=== PATIENT | female | born 1985 | race Caucasian/White ===

== ENCOUNTER 2023-10-27 11:50 | Emergency (ER) | payer OTHER, SELFPAY ==
[2023-10-27 11:57] VITALS: BP 118/76; PULSE 71; TEMP 36.9; O2SAT 100; BMI 20.4
--- NOTE | 2023-10-27 15:29 | ED.GENADUL1 ---
HPI HPI - General Adult General Stated complaint: EYE PAIN Source: patient Mode of arrival: walk-in Related Data Allergies Allergy/AdvReac Type Severity Reaction Status Date / Time No Known Drug Allergies Allergy Verified 10/27/23 12:01 Opioid HPI Opioid Management Most Recent Opioid Data: No Data to Display Exam Constitutional Vital Signs, click to edit/add: Last Vital Signs Temp 98.5 F 10/27/23 11:57 Pulse 71 10/27/23 11:57 Resp 16 10/27/23 11:57 BP 118/76 10/27/23 11:57 Pulse Ox 100 10/27/23 11:57 Course Vital Signs Vital signs: Vital Signs Temperature 98.5 F 10/27/23 11:57 Pulse Rate 71 10/27/23 11:57 Respiratory Rate 16 10/27/23 11:57 Blood Pressure 118/76 10/27/23 11:57 Pulse Oximetry 100 10/27/23 11:57 Temperature 98.5 F 10/27/23 11:57 Pulse Rate 71 10/27/23 11:57 Respiratory Rate 16 10/27/23 11:57 Blood Pressure 118/76 10/27/23 11:57 Pulse Oximetry 100 10/27/23 11:57 Medical Decision Making MDM Narrative Medical decision making narrative: Left from waiting room after triage. Not seen by provider. Discharge Plan Discharge Patient Disposition: Left Without Being Seen Discharge Date/Time: 10/27/23 12:25
== END 2023-10-27 12:25 | disposition left against medical advice (07) ==
LOC: ER 12:06
PROVIDERS: Emergency Provider Student in an Organized Health Care Education/Training Program
DX: Z53.21 Procedure and treatment not carried out due to patient leaving prior to being seen by health care provider (principal)

== ENCOUNTER 2024-11-17 08:38 | Outpatient (OUT) | payer OTHER, SELFPAY ==
--- OUTSIDE RECORDS SUMMARY | 2024-01-27 05:00 | XMS_ITS ---
Author Organization [facility] in [place] Address [address] [place] [address] Care Team Providers Care Pegger Name Role Phone Radha Hernández Primary Care Provider Allergies No Known Allergies Reason For Referral Reason hearing loss Diagnosis 1 Hearing loss (H91.90 ) Referral Organization [facility] Referring Provider First Name Radha Referring Provider Last Name Betty Referring Provider Speciality [facility] Referred Provider Barbara Ann Referred Provider Specialty Otolaryngolo gy Referral Priority Routine REASON FOR VISIT establish- hasn't had a routine PCP, Right ear issues- was told in the past has punctured ear drum-needs referral Medications Medication SIG (Take, Route, Fr equency, Duration) Notes Start Date End Date Status Omeprazole 20 MG 1 capsule 1/2 to 1 h our before morning meal Orally Once a day for 30 days 01/27/2024 Active Cetirizine HCl 10 MG 1 tablet Orally Onc e a day for 30 days 01/27/2024 Active Social History Tobacco Use: Social History Observation Description Date Details (start date - stop date) Current Smoker 04/15/2001 - NA Tobacco Control (Standard) Question Answer Notes Tobacco use: Current smoker When did you start smoking? 04/15/2001 How often do you smoke cigarettes? Every day How many cigarettes a day do you smoke? 6-10 Additional Findings: Tobacco user Light cigarett e smoker (1-9 cigs/day) AUDIT-C (Standard) Question Answer Notes Did you have a drink contain ing alcohol in the past year? Yes How often did you have six o r more drinks on one occasion in the past year? 2 to 4 times a month (2 points) How many drinks did you have on a typical day when you were drinking in the past year? 5 or 6 drinks (2 points) How often did you have a dri nk containing alcohol in the past year? 2 to 4 times a month (2 points) Points 6 Interpretation Positive Problems Problem Type SNOMED Code ICD Code Onset Dates Problem Status W/U Status Risk Notes Problem Gastroesophageal reflux disease (256961511) GERD (gastroesopha geal reflux disease) (K21.9) Active confirmed Problem Seasonal allergy (184080593) Seasonal allergies (J30.2) Active confirmed Problem Hearing loss (38872292) Hearing loss (H91.90) Active confirmed Problem Smoker (98525415) Smoker (F17.200) Active confirmed Vital Signs Weight 150.2 lbs 01/27/2024 Height 67 in 01/27/2024 Blood pressure systolic 114 mm Hg 01/27/20 24 Blood pressure diastolic 72 mm Hg 024 BMI 23.52 kg/m2 01/27/2024 Encounters Encounter Location Date Provider Diagnosis [facility] [address] [place] [address] 01/27/2024 Radha Betty Hearing loss H91.90 ; Wellness examination Z00.00 ; GERD (gastroesophageal reflux disease) K21.9 ; Seasonal allergies J30.2 and Smoker F17.200 Assessments Encounter Date Diagnosis (ICD Code) Assessment Notes Treatment Notes Treatment Clinical Notes Section Notes 01/27/2024 Hearing loss (ICD-10 - H91.90) referral ENT 01/27/2024 Wellness examination (ICD-10 - Z00.00) ROS done exam done labs ordered encouraged pap 01/27/2024 GERD (gastroesophagea l reflux disease) (ICD-10 - K21.9) 01/27/2024 Seasonal allergies (ICD-10 - J30.2) 01/27/2024 Smoker (ICD-10 - F17.200) Plan Of Treatment Medication Medication Name Sig Start Date Stop Date Notes Omeprazole 20 MG 1 capsule 1/2 to 1 h our before morning meal Orally Once a day for 30 days 01/27/2024 Cetirizine HCl 10 MG 1 tablet Orally Onc e a day for 30 days 01/27/2024 Treatment Notes Assessment Notes Hearing loss referral ENT Wellness examination ROS done exam done labs ordered encouraged pap Pending Test Test Name Order Date CMP (COMPLETE METABOLIC PANEL) 4 HEMOGLOBIN A1C (GLYCO) 01/27/2024 INSULIN, TOTAL 01/27/2024 LIPID PANEL (CHOL/TRIG/HDL/LDL) 01/27/20 24 CBC WITH DIFF 01/27/2024 THYROID PANEL (T4/TSH/FREE T3) 4 Referrals Referral Date Details 01/27/2024 01/27/2024, hearing loss, Barbara Ann Next Appt Details Follow Up: prn,1 Year, Reaso n: Progress Notes * Nkiki CARTER MDOB:[birth year] (38 yo F)Acc No.[id number]:01/27/2024 New Patient Patient: Nikki CHATMAN Provider: Anthony Hernández ([facility]), [employer] :1985 A ge:38 Y S ex:Female Date:01/27/2024 Address:[address] [place] [address] , [facility] , [place], [id number] Check In:09:01 AM ESTCheck O ut:09:33 AM EST Subjective: * Chief Complaints: * 1 . establish- hasn't had a routine PCP. 2. Right ear issues- was told in the past has punctured ear drum- needs referral. * HPI: D epression Screening: PHQ-2 (2015 Edition) L ittle interest or pleasure in doing things??Not at all F eeling down, depressed, or hopeless? N ot at all T otal Score 0 G eneral: last year told right eardrum punctured has had hearing loss since early 20s, saw ENT and told half deaf thinks hearing getting worse some balance issues, some random dizziness no recent ear pain, no drainage has had many ear infections as kid, some in 20s headaches, ibuprofen helps heartburn daily, TUMS helps some didnt have health insurance for awhile, will be getting pap seasonal allergies, zyrtec helped in past kids 17, 14, 11; kids dont live with her lives with boyfriend. * ROS: G eneral/Constitutional: Fever d enies. H eadache d enies. W eight loss?denies. O phthalmologic: Discharge d enies. E ye Pain d enies. I tching and redness d enies. E NT: Patient admits h earing loss on right some intermittent vertigo. N elizabeth congestion?denies. N elizabeth discharge d enies. S ore throat d enies. C ardiovascular: Chest tightness/ heavy pressure d enies. R apid heart rate d enies. S welling of extremities d enies. C hest pain d enies. ? R espiratory: Productive cough d enies. C hest pain d enies. C ough d enies. S hortness of breath d enies. W heezing d enies. ? G astrointestinal: Abdominal pain d enies. C onstipation d enies. D ecreased appetite d enies. D iarrhea d enies. N ausea d enies. V omiting?denies. G enitourinary: Urinary incontinence d enies. P ainful urination d enies. M usculoskeletal: Back pain d enies. N carlene pain d enies. M uscle aches d enies. S kin: Rash d enies. S kin lesion(s) d enies. ? * Active Problem List K21.9 GERD (gastroesophage al reflux disease) Modified On:01/27/2024/U Status:confirmed J30.2 Seasonal allergies Modified On:01/27/2024U Status:confirmed H91.90 Hearing loss Modified On:01/27/2024/U Status:confirmed F17.200 Smoker Modified On:01/27/2024U Status:confirmed * Medical History: * Surgical History: T ubes in Ears 1990. * Hospitalization/Major Diagno stic Procedure: D enies Past Hospitalization. * Family History: F ather: alive, Heart Attack x2, Emphysema, COPD, diagnosed with Unspecified heart disease.?Mother: alive, Breast Cancer- Remission, Arthritis, diagnosed with Other malignant neoplasm of unspecified site. B rother(s): alive. S ister(s): alive. S on(s): alive. D aughter(s): alive. 2 brother(s) , 1 sister(s) . 1 son(s) , 2 daughter(s) . . 1 Brother . * Social History: T obacco Use: T obacco Control (Standard) T obacco use: C urrent smoker W hen did you start smoking? 0 04/15/2001 H ow often do you smoke cigarettes? E very day H ow many cigarettes a day do you smoke? 6 -10 A dditional Findings: Tobacco user L ight cigarette smoker (1-9 cigs/day) D rug/Alcohol: A ANKIT-C (Standard) D id you have a drink containing alcohol in the past year? Y es H ow often did you have six or more drinks on one occasion in the past year? 2 to 4 times a month (2 points) H ow many drinks did you have on a typical day when you were drinking in the past year? 5 or 6 drinks (2 points) H ow often did you have a drink containing alcohol in the past year? 2 to 4 times a month (2 points) P oints 6 I nterpretation P ositive * Medications: N one * Allergies: N .K.D.A. Objective: * Vitals: W t:150.2lbs, Ht: 67 in, BP:114/72mm Hg, BMI:23.52Index, Ht-cm: 170.18 cm, Wt-k.13 kg. * Examination: G eneral Examinations: GENERAL APPEARANCE: a lert and oriented, i n no acute distress. EYES: c onjunctiva normal, sclera non-icteric. EARS: b oth ears opaque TM. NOSE: n ormal external appearance. THROAT: n ormal. LUNGS: c lear to auscultation bilaterally. CARDIO: r egular rate and rhythm, S1, S2 normal. ABDOMEN: s oft, nontender. MUSCULOSKELETAL G ait and station normal. SKIN: w arm and dry. Assessment: * Assessment: 1. H earing loss - H91.90 (Primary) 2 . W ellness examination - Z00.00 3 . G ERD (gastroesophageal reflux disease) - K21.9 4 . S easonal allergies - J30.2 5 . S moker - F17.200 Plan: * Treatment: 2. W ellness examination L AB: CMP (COMPLETE METABOLIC PANEL) L AB: HEMOGLOBIN A1C (GLYCO) L AB: INSULIN, TOTAL L AB: LIPID PANEL (CHOL/TRIG/HDL/LDL) L AB: CBC WITH DIFF L AB: THYROID PANEL (T4/TSH/FREE T3) Notes: ROS done exam done labs ordered encouraged pap 3. G ERD (gastroesophageal reflux disease) Start Omeprazole Capsule Delayed Release, 20 MG, 1 capsule 1/2 to 1 hour before morning meal, Orally, Once a day, 30 days, 30, Refills 11. 4. S easonal allergies Start Cetirizine HCl Tablet, 10 MG, 1 tablet, Orally, Once a day, 30 days, 30, Refills 11. ? * Follow Up: p rn,1 Year * * Sign off status: Completed Visit Status: Lucas HK (Check Out) true * Provider: Anthony Hernández ([facility]), [employer] Date: Generated for Yuan esqueda/Chung/eTransmitting on: 0 11/17/2024 08:46 AM EDT History and Physical Notes * HPI (History of Present Illness) Category Sub-Category Detail Notes Category Not es General last year told right eardrum punctured has had hearing loss since early 20s, saw ENT and told half deaf thinks hearing getting worse some balance issues, some random dizziness no recent ear pain, no drainage has had many ear infections as kid, some in 20s headaches, ibuprofen helps heartburn daily, TUMS helps some didnt have health insurance for awhile, will be getting pap seasonal allergies, zyrtec helped in past kids 17, 14, 11; kids dont live with her lives with boyfriend Depression Screening PHQ-2 (2015 Edition) Little interest or pleasure in doing things?: Not at all Feeling down, depressed, or hopeless?: N ot at all Total Score: 0 Examination Category Sub-Category Detail Notes Category Not es General Examinations GENERAL APPEARANCE: alert a nd oriented, in no acute distress EYES: conjunctiva normal, sclera non-icteric EARS: both ears opaque TM NOSE: normal external appe arance THROAT: normal CARDIO: regular rate and rhy thm, S1, S2 normal LUNGS: clear to auscultatio n bilaterally ABDOMEN: soft, nontender SKIN: warm and dry BACK: MUSCULOSKELETAL: Gait and station nor mal LYMPH NODES: Consultation Request Notes Referral Date Referring Provider Referred Provider Not es 01/27/2024 Radha Hernández, Barbara michelle
--- OUTSIDE RECORDS SUMMARY | 2024-05-06 09:14 | XMS_ITS ---
Author Organization [facility] [place] Address [address] [place] [address] Care Team Providers Care Medical Record Specialist Name Role Phone Betty, Radha Primary Care Provider Reason For Referral Diagnosis 1 Vertigo (R42) Referral Organization [facility] Referring Provider First Name Radha Referring Provider Last Name Betty Referring Provider [facility] Referred Provider [facility] Referred Provider Specialty Neurology Referral Priority Routine REASON FOR VISIT referral Neuro Problems Problem Type SNOMED Code ICD Code Onset Dates Problem Status W/U Status Risk Notes Problem Vertigo (897988026) Vertigo (R42) Active confirmed Encounters Encounter Location Date Provider Diagnosis [facility] [address] [place] [address] 05/06/2024 Radha Hernández Vertigo R42 Assessments Encounter Date Diagnosis (ICD Code) Assessment Notes Treatment Notes Treatment Clinical Notes Section Notes 05/06/2024 Vertigo (ICD-10 - R42) Plan Of Treatment Referrals Referral Date Details 05/07/2024 05/07/2024, [facility] Progress Notes * Nikki CARTER MDOB:[birth year] (38 yo F)Acc No.[id number]:05/06/2024 Patient: Natasha Nikki JONES :1985 A ge:38 Y S ex:Female Address:[address] [place], [address] Subjective: * Chief Complaints: * r eferral Neuro * Medical History: * Surgical History: * Hospitalization/Major Diagno stic Procedure: * Medications: Objective: * Vitals: * Physical Examination: Assessment: * Assessment: 1. V ertigo - R42 (Primary) Plan: * Treatment: * Procedure Codes: * true * Date: Generated for Printi ng/Bobg/eTransmitting on: 0 11/17/2024 08:46 AM EDT Consultation Request Notes Referral Date Referring Provider Referred Provider Not 05/07/2024 Radha Hernández [facility]
--- OUTSIDE RECORDS SUMMARY | 2024-11-17 08:46 | XMS_ITS | Patient Health Record ---
Author Organization The [facility] in [place] Address [address] [place] [address] Care Team Providers Care Platform Power Technician Name Role Phone Radha Hernández Primary Care Provider Allergies No Known Allergies Reason For Referral Reason hearing loss Diagnosis 1 Hearing loss (H91.90 ) Referral Organization [facility] Referring Provider First Name Radha Referring Provider Last Name Betty Referring Provider [facility] Referred Provider Barbara Ann Referred Provider Specialty Otolaryngolo gy Referral Priority Routine Diagnosis 1 Vertigo (R42) Referral Organization [facility] Referring Provider First Name Radha Referring Provider Last Name Betty Referring Provider [facility] Referred Provider [facility] Referred Provider Specialty Neurology Referral Priority Routine Medications Medication SIG (Take, Route, Fr equency, [...] Status Risk Notes Problem Gastroesophageal reflux disease (021064413) GERD (gastroesopha geal reflux disease) (K21.9) Active confirmed Problem Smoker (01864547) Smoker (F17.200) Active confirmed Problem Vertigo (061852221) Vertigo (R42) Active confir med Problem Hearing loss (85635278) Hearing loss (H91.90) Active confirmed Problem Seasonal allergy (890278764) Seasonal allergies (J30.2) Active confirmed Vital Signs Blood pressure diastolic 72 mm Hg 01/27/2024 Height 67 in 01/27/2024 Blood pressure systolic 114 mm Hg 01/27/2024 Weight 150.2 lbs 01/27/2024 BMI 23.52 kg/m2 01/27/2024 Encounters Encounter Location Date Provider Diagnosis [address] [address] 01/27/2024 Radha Betty Hearing loss H91.90 ; Wellness examination Z00.00 ; GERD (gastroesophageal reflux disease) K21.9 ; Seasonal allergies J30.2 and Smoker F17.[address] [address] 05/06/2024 Radha Betty Vertigo R42 Assessments Encounter Date Diagnosis (ICD Code) Assessment Notes Treatment Notes Treatment Clinical Notes Section Notes 01/27/2024 Hearing loss (ICD-10 - H91.90) referral ENT 01/27/2024 Wellness examination (ICD-10 - Z00.00) ROS done exam done labs ordered encouraged pap 05/06/2024 Vertigo (ICD-10 - R42) 01/27/2024 GERD (gastroesophagea l reflux disease) (ICD-10 - K21.9) 01/27/2024 Seasonal allergies (ICD-10 - J30.2) 01/27/2024 Smoker (ICD-10 - F17.200) Plan Of Treatment Pending Test Test Name Order Date CMP (COMPLETE METABOLIC PANEL) 4 HEMOGLOBIN A1C (GLYCO) 01/27/2024 INSULIN, TOTAL 01/27/2024 LIPID PANEL (CHOL/TRIG/HDL/LDL) 01/27/20 24 CBC WITH DIFF 01/27/2024 THYROID PANEL (T4/TSH/FREE T3) 4 Insurance Providers Payer Name Payer Address Payer Phone Subscriber Number Group Number Insured Name Patient Relationship to Insured Coverage Start Date Coverage End Date [employer] [place] [employer] [address] [address] [place] [phone] [id number] Nikki Carter Self - patient is the insured Medical (General) History Medical History History ICD Code severe myringosclerosis Surgical History Surgery Date(Month/Year) Tubes in Ears 1990
--- OUTSIDE RECORDS SUMMARY | 2024-11-17 08:46 | XMS_ITS | Patient Health Record ---
Author Organization [facility] Address [address] [place], [place] [address] Care Team Providers Care Residential Tech Name Role Phone Us Ashliman Primary Care Provider [phone] Allergies No Known Allergies Reason For Referral No Information Problems Problem Type SNOMED Code ICD Code Onset Dates Problem Status W/U Status Risk Notes Problem Major depression, single episode (28381314) Depression motion (F32.9) 10/21/19 09 Active confirmed Description :Depressive disorder Problem Acute non-suppurative otitis media - serous (953262386) ACUTE SEROUS OTITIS MEDIA (H65.00) 04/19/19 10 Active confirmed Problem Female genital organ symptoms (063200390) Symptom associated with female genital organs (625.9) (625.9) 06/02/19 10 Active confirmed Problem Spasm (05592742) Spasm, muscle (728.85) (728.85) 10/21/19 09 Active confirmed Problem Allergic rhinitis (97316853) Allergic rhinitis (J30.9) 06/02/19 10 Active confirmed Problem Cephalalgia (45978126) Cephalalgia (R51.9) 10/21/19 09 Active confirmed Description :Headache Plan Of Treatment No Information Insurance Providers Payer Name Payer Address Payer Phone Subscriber Number Group Number Insured Name Patient Relationship to Insured Coverage Start Date Coverage End Date [facility] [address] [address] [place], [place] [id number] Nikki Carter Self - patient is the insured 1 Medicaid CFC after [facility] [address] [place] [address] [id number] Nikki Carter Self - patient is the insured 1
--- OUTSIDE RECORDS SUMMARY | 2024-11-17 08:47 | XMS_ITS | Clinical Summary ---
Author Organization [facility] Address [address] [place] [address] Care Team Providers Care Route Salesman And Driver Name Role Phone Radha Hernández MD Unavailable [phone] Allergies No known active allergies Medications cetirizine (ZyrTEC) 10 MG tablet TAKE 1 TABLET BY MOUTH EVERY DAY FOR 30 DAYS 02/23/2024 Active omeprazole (PriLOSEC) [address] capsule TAKE 1 CAPSULE BY MOUTH 1/2 TO 1 HOUR BEFORE MORNING MEAL 01/27/2024 Active cyproheptadine (Periactin) 4 MG tabletIndication s:Benign paroxysmal positional vertigo, unspecified laterality,Chron ic daily headache 1/2-1 po q hs 30 tablet 2 06/22/2024 Active Family History Medical History Relation Name Comments COPD Father Heart attack Father Cancer Mother Relation Name Status Comments Father Alive Mother Alive Social History Tobacco Use Types Packs/Day Years Used Date Smoking Tobacco: Every Day Cigarettes Smokeless Tobacco: Never Tobacco Cessation:Ready to Q uit: Not Asked; Counseling Given: Not Answered Alcohol Use Standard Drinks/Week Comments Yes 0 (1 standard drink = 0.6 oz pur e alcohol) Social Comments Unknown Sex and Gender Information Value Date Recorded Sex Assigned at Not on file Legal Sex Female 3:14 PM EDT Gender Identity Not on file Sexual Orientation Not on file Last Filed Vital Signs Vital Sign Reading Time Taken Comments Blood Pressure 152/88 06/22/2024 2:55 PM EDT Pulse 104 06/22/2024 2:55 PM EDT Temperature - - Respiratory Rate - - Oxygen Saturation 99% 06/22/2024 2:55 PM EDT Inhaled Oxygen Concentration - - Weight 73.9 kg (163 lb) 06/22/2024 2:55 PM EDT Height 170.2 cm (5' 7 ) 06/22/2024 2:55 PM EDT Body Mass Index 25.53 06/22/2024 2:55 PM EDT Plan of Treatment Not on file Insurance [employer] Care Teams Route Salesman And Driver Relationship Specialty Start Date End Date Radha Hernández MD [address] [place] [id number] Referring Physician Family Medicine 01/28/24
[2024-11-17 09:14] LABS: Hematocrit 36.6 % (36.0-48.0); Hemoglobin 12.2 g/dL (12.0-16.0); Immature Granulocytes Abs Auto 0.02 10^3/uL (0.00-0.03); Immature Granulocytes Pct Auto 0.3 % (0.0-0.5); Lymphocytes Absolute Auto 3.2 10^3/uL (1.2-3.8); Mean Corpuscular HGB Conc 33.3 g/dL (29.9-35.2); Mean Corpuscular Hemoglobin 31.7 pg (26.7-34.0); Mean Corpuscular Volume 95.1 fL (81.0-99.0); Platelet Count 300 10^3/uL (150-450); Red Blood Count 3.85 10^6/uL (4.20-5.40); White Blood Count 7.2 10^3/uL (4.0-11.0)
[2024-11-17 09:54] LABS: Alanine Aminotransferase 26 U/L (14-59); Albumin Globulin Ratio 1.2; Albumin Level 3.7 g/dL (3.4-5.0); Alkaline Phosphatase 56 U/L (46-116); Anion Gap 11.6; Aspartate Amino Transferase 17 U/L (15-37); Blood Urea Nitrogen 12.0 mg/dL (7.0-18.0); Calcium 9.4 mg/dL (8.5-10.1); Carbon Dioxide 29.1 mmol/L (21.0-32.0); Chloride 107 mmol/L (98-107); Cholesterol 211 mg/dL (<=200); Estimated GFR (African America >60 (>=60 mL/min/1.73m^2); Estimated GFR (Non-African Ame >60 (>=60 mL/min/1.73m^2); Free T3 3.32 pg/mL (2.18-3.98); Globulin 3.0 g/dL; Glucose 94 mg/dL (74-106); HDL Cholesterol 70 mg/dL (40-60); Potassium 4.7 mmol/L (3.5-5.1); Sodium 143 mmol/L (136-145); Thyroid Stimulating Hormone 5.886 uIU/mL (0.358-3.740); Total Protein 6.7 g/dL (6.4-8.2); Triglycerides 80 mg/dL (<=150); VLDL CHOLESTEROL 16.0 mg/dL
== END 2024-11-17 08:39 | disposition home or self-care (01) ==
PROVIDERS: PCP Nurse Practitioner Family; Visit Provider Nurse Practitioner Family
DX: Z00.00 Encounter for general adult medical examination without abnormal findings (principal)
CPT/HCPCS: 36415; 80053; 80061; 83036; 83525; 84436; 84443; 84481; 85025